=== PATIENT | female | born 1965 | race Caucasian/White ===

== ENCOUNTER → 2019-08-03 | Outpatient (CLI) | payer OTHER | END | disposition home or self-care (01) | LOC: OLS 12:54 → LAB SHORT 12:54 | DX: E11.42 Type 2 diabetes mellitus with diabetic polyneuropathy (principal) | CPT/HCPCS: 82043 ==

== ENCOUNTER → 2019-12-08 | Outpatient (CLI) | payer OTHER ==
[2019-12-08 13:51] LABS: Creatinine, Urine Random 30.8 mg/dL (27.00-270.00)
[2019-12-08 13:54] LABS: Microalb/Creat Ratio UR, Rand 27.11 mg/g (0.000-30.000); Microalbumin, Random Urine 8.35 mg/L (0.000-20.000)
== END ==
LOC: LAB SHORT 04:30 → LAB 04:30
PROVIDERS: Nurse Practitioner Family
DX: E11.41 Type 2 diabetes mellitus with diabetic mononeuropathy (principal)
CPT/HCPCS: 82043; 82570

== ENCOUNTER → 2020-07-25 | Outpatient (CLI) | payer OTHER ==
[2020-07-28 15:10] LABS: HPV 16 Positive (Negative); HPV 18 Negative (Negative); HPV OTHER HR TYPES Negative (Negative)
== END | disposition home or self-care (01) ==
LOC: LAB SRC 12:15 → LAB SHORT 12:15
PROVIDERS: Nurse Practitioner Family
DX: Z12.4 Encounter for screening for malignant neoplasm of cervix (principal)
CPT/HCPCS: 87624; G0123

== ENCOUNTER → 2021-09-30 | Outpatient (CLI) | payer OTHER ==
[2021-10-01 13:42] LABS: Stool Occult Bld Immuno 1 Negative (NEGATIVE)
== END | disposition home or self-care (01) ==
LOC: LAB SHORT 22:00 → LAB 22:00
PROVIDERS: Physician Assistant
DX: Z12.11 Encounter for screening for malignant neoplasm of colon (principal)
CPT/HCPCS: G0328

== ENCOUNTER → 2023-02-07 | Outpatient (CLI) | payer OTHER ==
[2023-02-07 15:39] LABS: BASOPHILS ABSOLUTE AUTO 0.05 K/mm3 (0.00-0.23); BASOPHILS PERCENT AUTO 1 % (0-2); EOSINOPHILS ABSOLUTE AUTO 0.49 K/mm3 (0.00-0.68); EOSINOPHILS PERCENT AUTO 5 % (0-6); Hematocrit 44.9 % (33.0-51.0); Hemoglobin 15.2 g/dL (11.5-16.0); IMMATURE GRAN ABSOLUTE AUTO 0.03 K/mm3 (0.00-0.10); IMMATURE GRAN PERCENT AUTO 0 % (0-1); LYMPHOCYTES PERCENT AUTO 25 % (21-46); MONOCYTES ABSOLUTE AUTO 0.93 K/mm3 (0.16-1.47); MONOCYTES PERCENT AUTO 9 % (4-13); Mean Corpuscular HGB 29.9 pg (26.0-34.0); Mean Corpuscular HGB Conc 33.9 g/dL (31.5-36.5); Mean Corpuscular Volume 88 fL (80-100); Mean Platelet Volume 9.3 fL (9.1-12.4); NEUTROPHILS ABSOLUTE AUTO 6.49 K/mm3 (1.96-9.15); NEUTROPHILS PERCENT AUTO 61 % (41-73); Platelet Count 257 K/mm3 (150-400); RDW Coefficient Variation 12.7 % (11.7-14.2); RDW Standard Deviation 41.1 fL (35.1-46.3); Red Blood Cell Count 5.08 M/mm3 (3.80-5.20); White Blood Cell Count 10.69 K/mm3 (4.00-11.30)
[2023-02-07 20:08] LABS: Alanine Aminotransfer (ALT/SGP 24 U/L (12-78); Albumin, Blood 4.1 g/dL (3.4-5.0); Albumin/Globulin Ratio 1.2 (0.8-1.8); Alk Phos 63 U/L (50-136); Anion Gap 9 mmol/L (6-16); Blood Urea Nitrogen 15 mg/dL (8-24); Bun/Creatinine Ratio 16.8 (12.0-20.0); CHOL/HDL RATIO 2.9; CO2, Blood 22 mmol/L (21-32); Calcium, Blood 9.6 mg/dL (8.5-10.1); Chloride, Blood 106 mmol/L (98-108); Cholesterol 102 mg/dL (50-200); Globulin, Blood 3.5 g/dL (2.2-4.0); Glomerular Filtration Rate 75 (60-); Glucose, Blood 114 mg/dL (70-99); HDL Cholesterol 35 mg/dL (>39); LDL/HDL RATIO 0.8; Low Density Lipoprotein Chol 28 mg/dL (0-110); Potassium, Blood 4.3 mmol/L (3.5-5.5); Sodium, Blood 137 mmol/L (136-145); Total Protein, Blood 7.6 g/dL (6.4-8.2); Triglycerides 193 mg/dL (30-160); Very Low Density Lipoprot Chol 38 mg/dL (6-32)
[2023-02-07 20:13] LABS: Aspartate Aminotrans (AST/SGOT 15 U/L (12-37)
== END | disposition home or self-care (01) ==
LOC: LAB 14:07 → LAB SHORT 14:07
PROVIDERS: Nurse Practitioner Family
DX: E11.42 Type 2 diabetes mellitus with diabetic polyneuropathy (principal); E03.9 Hypothyroidism, unspecified; E78.2 Mixed hyperlipidemia; Z79.4 Long term (current) use of insulin
CPT/HCPCS: 36415; 80053; 80061; 82043; 83036; 84443; 85025

== ENCOUNTER → 2024-01-09 | Outpatient (CLI) | payer OTHER ==
[2024-01-25 12:46] LABS: HPV HIGH RISK BY TMA Not Detected; HPV SOURCE Cervical
== END ==
LOC: LAB 17:39 → LAB SHORT 17:39
PROVIDERS: Nurse Practitioner Family
DX: Z01.419 Encounter for gynecological examination (general) (routine) without abnormal findings (principal)
CPT/HCPCS: 87624; G0123

== ENCOUNTER → 2024-04-26 | Outpatient (CLI) | payer OTHER ==
[2024-05-01 14:02] LABS: Stool Occult Bld Immuno 1 Negative (NEGATIVE)
== END ==
LOC: LAB SHORT 14:19 → LAB 14:19
PROVIDERS: Nurse Practitioner Family
DX: Z12.11 Encounter for screening for malignant neoplasm of colon (principal)
CPT/HCPCS: G0328